=== PATIENT | female | born 2000 | race Caucasian/White ===

== ENCOUNTER 2025-02-20 15:25 | Emergency (ER) | payer BC ==
[2025-02-20 16:00] LABS: BASOPHILS ABSOLUTE AUTO 0.0 K/mm3 (0.0-0.2); BASOPHILS PERCENT AUTO 0.2 % (0.0-1.0); EOSINOPHILS ABSOLUTE AUTO 0.1 K/mm3 (0.0-0.4); EOSINOPHILS PERCENT AUTO 0.9 % (0.0-6.0); IMMATURE GRAN ABSOLUTE AUTO 0.08 K/mm3 (0.00-0.05); IMMATURE GRAN PERCENT AUTO 0.7 % (0.0-0.4); LYMPHOCYTES ABSOLUTE AUTO 2.0 K/mm3 (1.0-4.8); LYMPHOCYTES PERCENT AUTO 16.8 % (24.0-44.0); MEAN PLATELET VOLUME 10.5 fl (9.4-12.3); MONOCYTES ABSOLUTE AUTO 0.9 K/mm3 (0.0-0.8); MONOCYTES PERCENT AUTO 7.8 % (0.0-8.0); NEUTROPHILS ABSOLUTE AUTO 8.6 K/mm3 (1.8-7.7); NEUTROPHILS PERCENT AUTO 73.6 % (41.0-71.0); NRBC ABSOLUTE 0.00 (0.00-0.02); NRBC PERCENT 0.0 % (0.0-0.2); PLATELET COUNT,PLT 155 K/mm3 (150-400); RED BLOOD CELL COUNT 4.16 M/mm3 (4.10-5.30); WHITE BLOOD CELL COUNT,WBC 11.64 K/mm3 (3.9-11.3)
[2025-02-20 16:23] LABS: INR 0.97
[2025-02-20 16:37] LABS: A/G RATIO 0.7 (1-2); ALANINE AMINOTRANSFERASE,ALT 18.0 U/L (14-59); ASPARTATE AMNIOTRANSFERASE,AST 14.0 U/L (15-37); BILIRUBIN TOTAL 0.6 mg/dL (0.2-1.0); BLOOD UREA NITROGEN,BUN 8.0 mg/dL (7-18); CARBON DIOXIDE,CO2 24.0 mEq/L (21-32); CHLORIDE,CL 104.0 mEq/L (98-107); CREATININE 0.7 mg/dL (0.55-1.02); EST CRCL DRUG DOSING (CG) 127.26 mL/min; ESTIMATED GFR 124.0 mL/min (>60); GLUCOSE RANDOM 96.0 mg/dL (70-99); POTASSIUM,K 3.6 mEq/L (3.5-5.1); PROTEIN TOTAL,TP 6.6 g/dl (6.4-8.2); SODIUM,NA 139.0 mEq/L (136-145)
[2025-02-20 17:48] LABS: APPEARANCE,URINE CLEAR (Clear); GLUCOSE,URINE NEGATIVE (Negative); OCCULT BLOOD,URINE TRACE-LYSED (Negative)
[2025-02-20 18:20] LABS: BUPRENORPHINE SCREEN,URINE NEGATIVE (CUTOFF=10); METHADONE SCREEN, URINE NEGATIVE (CUTOFF=200); METHAMPHETAMINES SCREEN, URINE NEGATIVE (CUTOFF=500); OXYCODONE SCREEN,URINE NEGATIVE (CUT0FF=100); THC SCREEN,URINE 20 NG/ML NEGATIVE (CUTOFF=50)
[2025-02-20 18:23] LABS: AMPHETAMINES SCREEN, URINE NEGATIVE (CUTOFF=500)
== END 2025-02-20 18:52 | disposition home or self-care (01) ==
LOC: JD.ED 15:25
DX: O99.353 Diseases of the nervous system complicating pregnancy, third trimester (principal); F41.9 Anxiety disorder, unspecified; G43.909 Migraine, unspecified, not intractable, without status migrainosus
CPT/HCPCS: 36415; 80053; 80306; 81001; 83735; 85025; 85610; 87086; 96365; 99284; J3475; 99283

== ENCOUNTER 2025-03-05 06:27 | Inpatient (IN) | payer BC ==
[2025-03-05] MEDS ORDERED: Sodium Chloride 0.9% 10 ML Syringe FLUSH PRN (06:36)
[2025-03-05] MEDS ORDERED: Nalbuphine 10 MG/1 ML Vial IVPUSH PRN (06:36)
[2025-03-05 07:07] LABS: BASOPHILS ABSOLUTE AUTO 0.0 K/mm3 (0.0-0.2); BASOPHILS PERCENT AUTO 0.3 % (0.0-1.0); EOSINOPHILS ABSOLUTE AUTO 0.1 K/mm3 (0.0-0.4); EOSINOPHILS PERCENT AUTO 1.1 % (0.0-6.0); IMMATURE GRAN ABSOLUTE AUTO 0.07 K/mm3 (0.00-0.05); IMMATURE GRAN PERCENT AUTO 0.6 % (0.0-0.4); LYMPHOCYTES ABSOLUTE AUTO 2.5 K/mm3 (1.0-4.8); LYMPHOCYTES PERCENT AUTO 20.7 % (24.0-44.0); MEAN PLATELET VOLUME 10.4 fl (9.4-12.3); MONOCYTES ABSOLUTE AUTO 0.9 K/mm3 (0.0-0.8); MONOCYTES PERCENT AUTO 7.1 % (0.0-8.0); NEUTROPHILS ABSOLUTE AUTO 8.5 K/mm3 (1.8-7.7); NEUTROPHILS PERCENT AUTO 70.2 % (41.0-71.0); NRBC ABSOLUTE 0.00 (0.00-0.02); NRBC PERCENT 0.0 % (0.0-0.2); PLATELET COUNT,PLT 196 K/mm3 (150-400); RED BLOOD CELL COUNT 4.61 M/mm3 (4.10-5.30); WHITE BLOOD CELL COUNT,WBC 12.15 K/mm3 (3.9-11.3)
[2025-03-05] MEDS: Lactated Ringers 1,000 ML IV SCH (07:45)
[2025-03-05] MEDS: Sodium Chloride 0.9% 10 ML Syringe FLUSH SCH (10:17)
[2025-03-05] MEDS: Oxytocin/0.9 % Sodium Chloride 30 UNIT/500 ML BAG IV SCH (10:29)
[2025-03-05] MEDS ORDERED: diphenhydrAMINE 50 MG/ML SDV IVPUSH PRN (10:38)
[2025-03-05] MEDS ORDERED: ePHEDrine 50 MG/ML SDV IVPUSH PRN (10:38)
[2025-03-05] MEDS ORDERED: fentaNYL 100 MCG/2 ML SDV EPIDUR PRN (10:38)
[2025-03-05] MEDS: Bupivacaine/fentaNYL/NS 100 ML Bag EPIDUR PRN (13:03)
[2025-03-06] MEDS: Ondansetron 4 MG/2 ML SDV IVPUSH PRN (05:48)
[2025-03-06] MEDS: Citric Acid/Sodium Citrate Solution 30 ML Cup PO ONE ×2 (10:40→12:14)
[2025-03-06] MEDS ORDERED: Lactated Ringers 1,000 ML ONE (10:53)
[2025-03-06] MEDS ORDERED: Lidocaine 2% with EPINEPHrine 1:200,000 20 ML SDV ONE (11:00)
[2025-03-06] MEDS ORDERED: Morphine PF 10 MG/10 ML SDV ONE (11:14)
[2025-03-06] MEDS ORDERED: Ondansetron 4 MG/2 ML SDV ONE (11:14)
[2025-03-06] MEDS ORDERED: Oxytocin/0.9 % Sodium Chloride 30 UNIT/500 ML BAG IV ONE (11:30)
[2025-03-06] MEDS ORDERED: Ketorolac 15 MG/ML SDV ONE (11:52)
[2025-03-06] MEDS ORDERED: Ondansetron 4 MG/2 ML SDV IVPUSH PRN (12:00)
[2025-03-06] MEDS ORDERED: diphenhydrAMINE 50 MG/ML SDV IVPUSH PRN ×2 (12:00→12:17)
[2025-03-06] MEDS ORDERED: fentaNYL 100 MCG/2 ML SDV IVPUSH PRN (12:00)
[2025-03-06] MEDS ORDERED: Ondansetron 4 MG/2 ML SDV IV PRN (12:17)
[2025-03-06] MEDS ORDERED: Sodium Chloride 0.9% 10 ML Syringe FLUSH PRN (12:17)
[2025-03-06] MEDS ORDERED: Naloxone 0.4 MG/ML SDV IVPUSH PRN (12:17)
[2025-03-06] MEDS ORDERED: ePHEDrine 50 MG/ML SDV IVPUSH PRN (12:17)
[2025-03-06] MEDS: Ketorolac 30 MG/ML SDV IVPUSH SCH (18:54)
[2025-03-07 06:16] LABS: MEAN PLATELET VOLUME 10.1 fl (9.4-12.3); NRBC ABSOLUTE 0.00 (0.00-0.02); NRBC PERCENT 0.0 % (0.0-0.2); PLATELET COUNT,PLT 156 K/mm3 (150-400); RED BLOOD CELL COUNT 3.54 M/mm3 (4.10-5.30); WHITE BLOOD CELL COUNT,WBC 17.81 K/mm3 (3.9-11.3)
== END 2025-03-08 11:57 | disposition home or self-care (01) | DRG 540 ==
LOC: OBSVTOIN 06:27 → JD.OB 06:27
PROVIDERS: ADMIT Obstetrics & Gynecology; ATTEND Obstetrics & Gynecology
PROC: 10H07YZ Insertion of Other Device into Products of Conception, Via Natural or Artificial Opening (ICD-10-PCS; 2025-03-05)
PROC: 3E033VJ Introduction of Other Hormone into Peripheral Vein, Percutaneous Approach (ICD-10-PCS; 2025-03-05)
PROC: 0U7C7DJ Dilation of Cervix with Intraluminal Device, Temporary, Via Natural or Artificial Opening (ICD-10-PCS; 2025-03-06)
PROC: 10D00Z1 Extraction of Products of Conception, Low, Open Approach (ICD-10-PCS; principal; 2025-03-06 11:00)
DX: O40.3XX0 Polyhydramnios, third trimester, not applicable or unspecified (principal); Z3A.39 39 weeks gestation of pregnancy; Z37.0 Single live birth; O34.211 Maternal care for low transverse scar from previous cesarean delivery; O63.0 Prolonged first stage (of labor); O62.1 Secondary uterine inertia; Z87.891 Personal history of nicotine dependence
CPT/HCPCS: 01967; 01968; 36415; 51702; 59025; 85025; 85027; 86592; 86850; 86900; 86901; A9270-GY; C1726; J0456; J0690; J1885; J2004; J2175; J2210; J2274; J2405; J2765; J3490; J7050; J7120; J7999